=== PATIENT | male | born 1995 | race Caucasian/White ===

== ENCOUNTER 2018-07-28 19:08 | Emergency (ER) | payer BC ==
[~2018-07-28] VITALS: Ht 182.9 cm; Wt 95.5 kg
[2018-07-28 19:11] VITALS: TEMP 96.9
[2018-07-28 19:33] LABS: BASO % 0.5 % (0.0-2.0); GRAN # 3.1 (1.4-6.5); GRAN % 50.5 % (42.2-75.2); HEMATOCRIT 47.1 % (42.0-52.0); LYMPH # 2.3 (1.2-3.4); LYMPH % 37.5 % (20.0-51.0); MEAN CELL VOLUME 85 fl (80.0-100.0); MEAN CORPUSCULAR HEMOGLOBIN 29 pg (27.0-31.0); MEAN CORPUSCULAR HGB CONC 34 g/dl (33.0-37.0); MEAN PLATELET VOLUME 11.1 fl (7.4-10.4); MONO # 0.7 (0.1-0.6); MONO % 11.3 % (1.7-9.3); PLATELET COUNT 268 K/mm3 (130-400); RED BLOOD COUNT 5.56 M/mm3 (4.20-5.60); REDCELL DISTRIBUTION WIDTH-CV 12.9 % (11.5-14.5)
[2018-07-28 19:40] VITALS: BP 136/90
[2018-07-28 19:40] LABS: ALBUMIN 4.4 gm/dL (3.5-5.0); BILIRUBIN,TOTAL 3.2 mg/dL (0.0-1.0); C-REACTIVE PROTEIN 0.8 mg/dL (0.0-0.9); CALCIUM 9.2 mg/dL (8.4-10.2); CREATININE, serum 0.95 (0.66-1.25); POTASSIUM 3.9 mmol/L (3.4-5.0); TOTAL PROTEIN 7.4 gm/dL (6.4-8.2)
[2018-07-28] MEDS ORDERED: NORCO 325 MG-7.1 TAB PO (20:52)
[2018-07-28] MEDS ORDERED: IBU800 M1 PO (20:52)
[2018-07-28] MEDS ORDERED: ZOFRAN ODT4 MG PO (20:52)
[2018-07-28 21:09] LABS: COLLECTION METHOD CLEAN CATCH
[2018-07-28 21:16] LABS: MUCOUS Present /lpf; PH 6 (5-8); SQUAMOUS EPITHELIAL None Seen /hpf; URINE APPEARANCE Clear; URINE BACTERIA None Seen /hpf; URINE BILIRUBIN Negative (NEGATIVE); URINE BLOOD 3+ (NEGATIVE); URINE COLOR Yellow; URINE GLUCOSE Negative (NEGATIVE); URINE KETONE 1+ (NEGATIVE); URINE LEUKOCYTE ESTERASE Negative (NEGATIVE); URINE NITRATE Negative (NEGATIVE); URINE PROTEIN(semi-quant) Negative (NEGATIVE); URINE RBC 20-50 /hpf; URINE UROBILINOGEN Negative (NEGATIVE)
[2018-07-28 21:57] VITALS: PULSE 60
== END 2018-07-28 22:00 | disposition home or self-care (01) ==
LOC: COL.ER 19:08
PROVIDERS: Physician Assistant
DX: N20.0 Calculus of kidney (principal)
CPT/HCPCS: J1170; J1885; J2405; J7030; Q9967

== ENCOUNTER 2020-08-04 22:14 | Emergency (ER) | payer SELFPAY ==
[~2020-08-04] VITALS: Ht 182.9 cm; Wt 90.9 kg
[~2020-08-04 22:14] MED LIST: IBU800 M1 PO; NORCO 325 MG-7.1 TAB PO; ZOFRAN ODT4 MG PO
[2020-08-04 22:59] LABS: BASO % 0.2 % (0.0-2.0); GRAN # 10.5 (1.4-6.5); GRAN % 83.8 % (42.2-75.2); HEMOGLOBIN 14.7 g/dl (13.5-18.0); LYMPH # 1.1 (1.2-3.4); LYMPH % 8.9 % (20.0-51.0); MEAN CELL VOLUME 84 fl (80.0-100.0); MEAN CORPUSCULAR HEMOGLOBIN 28 pg (27.0-31.0); MEAN CORPUSCULAR HGB CONC 33 g/dl (33.0-37.0); MEAN PLATELET VOLUME 10.9 fl (7.4-10.4); MONO # 0.9 (0.1-0.6); MONO % 6.8 % (1.7-9.3); PLATELET COUNT 237 K/mm3 (130-400); RED BLOOD COUNT 5.23 M/mm3 (4.20-5.60); REDCELL DISTRIBUTION WIDTH-CV 12.6 % (11.5-14.5)
[2020-08-04 23:13] LABS: ALBUMIN 4.1 gm/dL (3.5-5.0); BILIRUBIN,TOTAL 0.9 mg/dL (0.0-1.0); CALCIUM 8.9 mg/dL (8.4-10.2); CREATININE, serum 1.08 (0.66-1.25); POTASSIUM 3.8 mmol/L (3.4-5.0)
[2020-08-04 23:48] LABS: COLLECTION METHOD CLEAN CATCH
[2020-08-04 23:53] LABS: PH 6 (5-8); SQUAMOUS EPITHELIAL None Seen /hpf; URINE APPEARANCE Clear; URINE BACTERIA None Seen /hpf; URINE BILIRUBIN Negative (NEGATIVE); URINE BLOOD Negative (NEGATIVE); URINE COLOR Colorless; URINE GLUCOSE Negative (NEGATIVE); URINE KETONE Trace (NEGATIVE); URINE LEUKOCYTE ESTERASE Negative (NEGATIVE); URINE NITRATE Negative (NEGATIVE); URINE PROTEIN(semi-quant) Negative (NEGATIVE); URINE RBC None Seen /hpf; URINE UROBILINOGEN Negative (NEGATIVE)
[2020-08-05] MEDS ORDERED: NORCO 325 MG-51 TAB PO (01:08)
[2020-08-05 01:31] VITALS: BP 130/80; PULSE 52; TEMP 98.3
== END 2020-08-05 01:31 | disposition home or self-care (01) ==
LOC: COL.ER 22:14
PROVIDERS: Emergency Medicine
DX: N13.2 Hydronephrosis with renal and ureteral calculous obstruction (principal); D72.829 Elevated white blood cell count, unspecified
CPT/HCPCS: J1885; J2270; J3010; J7030

== ENCOUNTER 2022-12-11 13:45 | Emergency (ER) | payer SELFPAY ==
[~2022-12-11] VITALS: Ht 182.9 cm; Wt 90.9 kg
[~2022-12-11 13:45] MED LIST changes: +NORCO 325 MG-51 TAB PO
[2022-12-11 13:59] VITALS: TEMP 98.7
[2022-12-11] MEDS ORDERED: ATARAX50 MG PO (14:21)
[2022-12-11] MEDS ORDERED: PREDNISONE10 MG PO (14:21)
[2022-12-11 14:33] VITALS: BP 105/65; PULSE 81
== END 2022-12-11 14:36 | disposition home or self-care (01) ==
LOC: COL.ER 13:45
DX: T78.49XA Other allergy, initial encounter (principal); F17.210 Nicotine dependence, cigarettes, uncomplicated; Z28.311 Partially vaccinated for COVID-19
CPT/HCPCS: J1100; J1200

== ENCOUNTER 2023-06-14 06:30 | Emergency (ER) | payer SELFPAY ==
[~2023-06-14] VITALS: Ht 182.9 cm; Wt 97.7 kg
[~2023-06-14 06:30] MED LIST changes: +ATARAX50 MG PO; +PREDNISONE10 MG PO
[2023-06-14 06:35] VITALS: TEMP 98.3
[2023-06-14] MEDS ORDERED: NORCO 325 MG-51 TAB PO (07:09)
[2023-06-14 07:46] VITALS: BP 118/95; PULSE 108
== END 2023-06-14 07:47 | disposition home or self-care (01) ==
LOC: COL.ER 06:30
DX: S52.501A Unspecified fracture of the lower end of right radius, initial encounter for closed fracture (principal); W22.01XA Walked into wall, initial encounter

== ENCOUNTER 2023-09-19 21:20 | Emergency (ER) | payer SELFPAY ==
[~2023-09-19] VITALS: Ht 182.9 cm; Wt 93.2 kg
[2023-09-19 21:24] VITALS: BP 136/68; PULSE 108; TEMP 98.2
== END 2023-09-19 22:05 | disposition left against medical advice (07) ==
LOC: COL.ER 21:20
DX: M79.641 Pain in right hand (principal); F17.210 Nicotine dependence, cigarettes, uncomplicated; F17.220 Nicotine dependence, chewing tobacco, uncomplicated